=== PATIENT | female | born 1965 | race Caucasian/White ===

== ENCOUNTER 2019-10-17 10:54 | Emergency (ER) | payer OTHER ==
[2019-10-17 11:07] VITALS: BP 155/88; PULSE 81; TEMP 98.6; BMI 37.5
--- NOTE | 2019-10-17 11:14 | PDOC ---
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 Avery Alegria. She states yesterday evening as she was getting out of bed her left knee brushed up against a wooden board and caused her patella to dislocate upwards towards her thigh. She states she was in a significant amount of pain when this happened and she instinctively pushed/reduced her patella back into its proper location. After she reduced her patella she had no pain at rest but it hurts her to flex or extend her knee. Her extensor mechanism is fully intact, however, and she can easily flex and extend her knee at bedside. She has no pain here in the ER and was planning to follow up with her PCP but Dr. Alegria recommended ER evaluation to ensure no patellar fracture and orthopedic consultation if necessary. Denies numbness, tingling, fevers, chills, weakness, other injuries. PCP: Dr. Avery Alegria Ortho: None PSH: Cholecystectomy, appendectomy Allergies: NKA, NKDA Social Hx: Denies smoking, drinking, or other substance abuse Past History - Medical History Allergies/Adverse Reactions: Allergies Allergy/AdvReac Type Severity Reaction Status Date / Time No Known Allergies Allergy Unverified 10/17/19 11:07 Home Medications: Ambulatory Orders NK [No Known Home Medication] 10/17/19 COPD: No HTN: Yes - Surgical History Cholecystectomy: Yes - Psycho-Social/Smoking History Smoking History: Never smoked Information on smoking cessation initiated: No - Substance Abuse Hx (Audit-C & DAST Scrn) How often the patient has a drink containing alcohol: Never Score: In Men: 4 or > Positive; In Women: 3 or > Positive: 0 Screen Result (Pos requires Nsg. Audit-10AR): Negative In the last yr the pt used illegal drug/Rx for NonMed reason: No Score: Yes response is considered Positive: 0 Screen Result (Positive result requires Nsg. DAST-10): Negative Review of Systems - Review of Systems Able to Perform ROS?: Yes Comments:: CONSTITUTIONAL: Absent: fever, no chills, no fatigue EYES: Absent: visual changes ENT: Absent: ear pain, no sore throat CARDIOVASCULAR: Absent: chest pain, no palpitations RESPIRATORY: Absent: cough, no SOB GI: Absent: abdominal pain, no nausea, no vomiting, no constipation, no diarrhea GENITOURINARY: Absent: dysuria, no frequency, no hematuria MUSKULOSKELETAL: Present: Arthralgia Absent: back pain, no myalgia SKIN: Absent: rash NEURO: Absent: headache *Physical Exam - Vital Signs Last Vital Signs Temp Pulse Resp BP Pulse Ox 98.6 F 81 16 155/88 98 10/17/19 10:59 10/17/19 10:59 10/17/19 10:59 10/17/19 10:59 10/17/19 10:59 - Physical Exam GENERAL: Well-appearing, well-nourished. No apparent distress. HEENT: Normocephalic, atraumatic. PERRL, EOM intact. CARDIOVASCULAR: Normal S1, S2. Regular rate and rhythm. PULMONARY: No evidence of respiratory distress. Lungs clear to auscultation bilaterally. No wheezing, rales or rhonchi. ABDOMEN: Soft, non-distended, non-tender. EXTREMITIES: Normal ROM in all four extremities. No gross deformities. LEFT LEG/KNEE: Externally appears normal. Patella seems to be in the correct place. No patellar pain on palpation. No appreciable effusion on exam. Full sensation. Distal vascular DP and PT pulses 2+. Mildly decreased strength on lower leg extension. Full strength on knee flexion. SKIN: Warm, dry. No rash NEUROLOGICAL: No focal neurological deficits. 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 Avery Alegria. She states yesterday evening as she was getting out of bed her left knee brushed up against a wooden board and caused her patella to dislocate upwards towards her thigh. She states she was in a significant amount of pain when this happened and she instinctively pushed/reduced her patella back into its proper location. After she reduced her patella she had no pain at rest but it hurts her to flex or extend her knee. Her extensor mechanism is fully intact, however, and she can easily flex and extend her knee at bedside. She has no pain here in the ER and was planning to follow up with her PCP but Dr. Alegria recommended ER evaluation to ensure no patellar fracture and orthopedic consultation if necessary. Vital Signs Temp Pulse Resp BP Pulse Ox 98.6 F 81 16 155/88 98 10/17/19 10:59 10/17/19 10:59 10/17/19 10:59 10/17/19 10:59 10/17/19 10:59 DDx IBNLT: Patellar fx, patellar dislocation, extensor disruption Plan: XR, Knee immobilizer, analgesia PRN, re-assess, Ortho FU XR: No acute fracture or dislocation Re-assessment: Patient feeling well with knee immobilizer and states she will call up ortho today to schedule a follow up appointment The patient appears clinically sober, is A&O x4, and appears to be capable and have capacity to make reasonable decisions. The patient states they are currently in the emergency department, knows who the president is, states the correct time, correct day, and correct month. The patient is ambulatory in ER and has walked around the nursing station multiple times with a straight gait, and is not ataxic. Tolerating PO well, ate a sandwich and drank juice. Denies having any SI or HI. Patient states will not be driving home. I discussed the physical exam findings, ancillary test results and final di agnoses with the patient. I answered all of the patient's questions. The patient was satisfied with the care received and felt comfortable with the discharge plan and treatment plan. The patient will call their primary care physician within 24 hours to arrange follow-up and will return to the Emergency Department with any new, persistent or worsening symptoms. Disposition: Home with ortho fu, weight baring with knee immobilizer, return precautions Please note, this clinical encounter is taking place during a federal and state health care emergency attributable to the novel Castaneda Virus pandemic. The Job Superintendent of the Department of Health and Human Services has declared, pursuant to the Public Health Service Act 319F-3 (42 U.S.C. 247d-6d), that a covered persons activities related to medical countermeasures against COVID-19 will be immune from liability under Federal and State law. Discharge - Discharge Information Problems reviewed: Yes Clinical Impression/Diagnosis: Knee injury Qualifiers: Encounter type: initial encounter Laterality: left Qualified Code(s): S89.92XA - Unspecified injury of left lower leg, initial encounter Condition: Stable - Admission No - Follow up/Referral Referrals: Faisal Jaimes DO [Staff Physician] - Marcos Dickey DO [Staff Physician] - - Patient Discharge Instructions Patient Printed Discharge Instructions: How to Use a Knee Immobilizer, DI for Patellar Dislocation Additional Instructions: You came into the ER after you might have dislocated your patella based on your story. The patella is in the normal place here in the ER. There is no fracture. We have placed your leg in a knee immobilizer and given you a referral to orthopedics for follow up. Please keep this knee immobilizer on until you see the orthopedist. You must return to the Emergency Department with any new complaints, if your symptoms persist and do not improve or if you develop any other new or worsening concerns. As discussed, please call to follow up with the orthopedist we are refering you to in 1-2 days to discuss what happened to you in the emergency room, and make sure you are being looked after and taken care of. Your emergency room visit is not complete without this follow up appointment. Please read the attached handouts for further information about your ER visit and what you should do moving forward. Thank you for coming to the [facility]. We hope you feel better soon! Print Language: L[place] - Post Discharge Activity
--- NOTE | 2019-10-17 12:29 | PDOC ---
Attending Attestation - Resident Resident Name: Johnny Rondon - ED Attending Attestation I have performed the following: I have examined & evaluated the patient, The case was reviewed & discussed with the resident, I agree w/resident's findings & plan - HPI HPI: 10/17/19 12:27 54-year-old female presents with left knee pain after presumed patella dislocation last night. Patient was sliding off her bed while facing the bed, states her left patella got caught on the edge of the bed and was then stuck in a superior location, she pushed it back into place and has since had some discomfort, but no motor or sensory deficit. Is ambulating comfortably, no other complaints. - Physicial Exam PE: 10/17/19 12:27 Vital signs stable Morbidly obese female seated comfortably in stretcher, exam is atraumatic. Left knee: No obvious joint effusion or asymmetry compared to the right side, no bruising, palpable midline patella without focal bony tenderness, extensor mechanism is intact, full flexion and extension with full strength, neurovascular intact distally. Stable on anterior/posterior/valgus/varus stress - Medical Decision Making 10/17/19 12:28 54-year-old female with left knee injury, question spontaneously reduced patellar dislocation. Now with stable knee and neurovascularly intact. Left knee x-ray Knee immobilizer for presumed dislocation/reduction Orthopedics follow-up, understands return criteria Discharge - Discharge Information Problems reviewed: Yes Clinical Impression/Diagnosis: Knee injury Qualifiers: Encounter type: initial encounter Laterality: left Qualified Code(s): S89.92XA - Unspecified injury of left lower leg, initial encounter Condition: Stable - Follow up/Referral - Patient Discharge Instructions - Post Discharge Activity
== END 2019-10-17 13:30 | disposition home or self-care (01) ==
LOC: FER 10:54
DX: S89.92XA Unspecified injury of left lower leg, initial encounter (principal)
CPT/HCPCS: 73560-TC-LT-FY; 99283-25